=== PATIENT | female | born 1985 | race African-American/Black ===

== ENCOUNTER 2021-05-01 12:32 | Emergency (ER) | payer OTHER ==
[~2021-05-01] VITALS: Ht 152.4 cm; Wt 52.0 kg
[2021-05-01 15:35] LABS: BASOPHILS % 0.7 % (0.0-2.0); EOSINOPHILS % 2.8 % (0.0-5.0); HEMATOCRIT. 37.9 % (36.0-48.0); HEMOGLOBIN. 12.3 g/dL (12.0-16.0); LYMPHOCYTES % 30.6 % (20.0-50.0); MEAN CORPUSCULAR HEMOGLOBIN 28.1 pg (28.0-32.0); MEAN CORPUSCULAR VOLUME 86.5 fL (81.0-99.0); MONOCYTES % 7.9 % (2.0-8.0); PLATELET 260 x1000/uL (130-400); RED BLOOD CELL COUNT 4.37 mill/uL (4.2-5.4); RED CELL DISTRIBUTION WIDTH 15.3 % (11.6-14.6)
[2021-05-01 15:39] LABS: CHLORIDE 109 mEq/L (98-107)
[2021-05-01 15:41] LABS: CLARITY URINE TURBID (CLEAR); COLOR URINE RED (YELLOW); KETONES URINE NEGATIVE (NEGATIVE); LEUKOCYTE ESTERASE URINE 2+ (NEGATIVE); NITRITE URINE POSITIVE (NEGATIVE); OCCULT BLOOD URINE 2+ (NEGATIVE); PROTEIN URINE 2+ (NEGATIVE); SPECIFIC GRAVITY URINE 1.011 (1.005-1.030); UROBILINOGEN URINE 0.2 E.U./dL (0.2-1.0)
[2021-05-01 15:44] LABS: HCG SCREEN NEGATIVE
[2021-05-01] MEDS ORDERED: KETOROLAC 30MG/ML VIAL IV STA (15:56)
[2021-05-01] MEDS ORDERED: SODIUM CHLORIDE 0.9% 1,000 ML IV ONE (16:00)
[2021-05-01] MEDS ORDERED: DIPHENHYDRAMINE 50MG/ML VIAL IV ONE (16:00)
[2021-05-01] MEDS ORDERED: HALOPERIDOL LACTATE 5MG/ML VIAL IM ONE (16:00)
[2021-05-01 16:32] VITALS: BP 118/82
== END 2021-05-01 16:39 | disposition left against medical advice (07) ==
LOC: ER 12:32
DX: J02.9 Acute pharyngitis, unspecified (principal); M54.2 Cervicalgia; F12.90 Cannabis use, unspecified, uncomplicated; Z20.822 Contact with and (suspected) exposure to COVID-19; Z88.0 Allergy status to penicillin
CPT/HCPCS: 36415; 80053; 81003; 84703; 85025; 87426; 99283; J7030

== ENCOUNTER 2022-02-06 12:04 | Emergency (ER) | payer OTHER ==
[~2022-02-06] VITALS: Ht 152.4 cm; Wt 47.0 kg
[2022-02-06 12:33] VITALS: BP 118/78
[2022-02-06] MEDS ORDERED: MORPHINE SULFATE 4 MG/ML CPJ (NOT FOR IM USE) IV STA (14:39)
[2022-02-06] MEDS ORDERED: ONDANSETRON HCL 4MG/2ML INJ IV STA (14:39)
[2022-02-06] MEDS ORDERED: FAMOTIDINE 20MG/2ML VIAL IV STA (14:39)
[2022-02-06] MEDS ORDERED: METHYLPREDNISOLONE SOD SUCC 125 MG/2 ML VIAL IV ONE (14:45)
[2022-02-06] MEDS ORDERED: SODIUM CHLORIDE 0.9% 1,000 ML IV ONE (14:45)
[2022-02-06] MEDS ORDERED: DIPHENHYDRAMINE 50MG/ML VIAL IV ONE (14:45)
[2022-02-06 15:39] LABS: BASOPHILS % 0.8 % (0.0-2.0); EOSINOPHILS % 0.5 % (0.0-5.0); HEMATOCRIT. 29.8 % (36.0-48.0); HEMOGLOBIN. 9.1 g/dL (12.0-16.0); LYMPHOCYTES % 32.4 % (20.0-50.0); MEAN CORPUSCULAR HEMOGLOBIN 21.9 pg (28.0-32.0); MEAN CORPUSCULAR VOLUME 71.7 fL (81.0-99.0); MEAN PLATELET VOLUME 8.3 fl (7.4-10.4); MONOCYTES % 8.9 % (2.0-8.0); NEUTROPHILS % 57.4 % (40.0-76.0); PLATELET 335 x1000/uL (130-400); RED BLOOD CELL COUNT 4.16 mill/uL (4.2-5.4); RED CELL DISTRIBUTION WIDTH 19.2 % (11.6-14.6)
[2022-02-06 15:47] LABS: CHLORIDE 107 mEq/L (98-107)
[2022-02-06 15:50] LABS: PROTHROMBIN TIME 10.9 sec (9.6-11.0)
[2022-02-06 15:53] LABS: HCG SCREEN NEGATIVE
[2022-02-06] MEDS ORDERED: IBUP-2028 MT (16:53)
[2022-02-06] MEDS ORDERED: IOHEXOL-300 100 ML BOTTLE ONE (17:07)
== END 2022-02-06 18:40 | disposition left against medical advice (07) ==
LOC: ER 12:37 → EDBEDREQSVC 17:42 → EDBEDREQTM 18:10 → EDBEDREQ 18:10 → ER 18:40 → CANBEDREQ 21:27
DX: R13.10 Dysphagia, unspecified (principal); K92.2 Gastrointestinal hemorrhage, unspecified; Z88.0 Allergy status to penicillin; Z87.19 Personal history of other diseases of the digestive system; Z98.890 Other specified postprocedural states
CPT/HCPCS: 36415; 70491; 71045; 74176; 80053; 83690; 84484; 84703; 85025; 85610; 85730; 86850; 86900; 86901; 96361; 96374; 96375; 99285; J1200; J2270; J2405; J2930; J3490; J7030; Q9967

== ENCOUNTER 2023-07-31 23:17 | Emergency (ER) | payer MEDICAID, OTHER ==
[~2023-07-31] VITALS: Ht 152.4 cm; Wt 63.9 kg
[~2023-07-31 23:17] MED LIST: IBUP-2028 MT
[2023-07-31 23:45] VITALS: BP 126/69; PULSE 74; RESP 16; TEMP 98.2; O2SAT 100
== END 2023-08-01 00:15 | disposition left against medical advice (07) ==
LOC: ER 23:17
DX: R21 Rash and other nonspecific skin eruption (principal); Z53.21 Procedure and treatment not carried out due to patient leaving prior to being seen by health care provider

== ENCOUNTER 2024-07-07 20:04 | Emergency (ER) | payer MEDICAID, OTHER ==
[~2024-07-07] VITALS: Ht 162.6 cm; Wt 78.0 kg
[2024-07-07 20:10] VITALS: O2SAT 100
[2024-07-07] MEDS: CYCLOBENZAPRINE 10MG TABLET PO ONE (21:48)
[2024-07-07] MEDS: KETOROLAC 15MG/ML VIAL IM ONE (21:48)
[2024-07-07] MEDS ORDERED: NAPR-681 MT (23:59)
[2024-07-07] MEDS ORDERED: CYCL10TA21 MT (23:59)
[2024-07-08 00:13] VITALS: BP 139/89; PULSE 89; RESP 19; TEMP 36.7; O2SAT 100
== END 2024-07-08 00:18 | disposition home or self-care (01) ==
LOC: ER 20:04
DX: M54.2 Cervicalgia (principal); M54.9 Dorsalgia, unspecified; F12.90 Cannabis use, unspecified, uncomplicated; Z79.899 Other long term (current) drug therapy; Z98.890 Other specified postprocedural states; Z79.1 Long term (current) use of non-steroidal anti-inflammatories (NSAID); Z88.0 Allergy status to penicillin
CPT/HCPCS: 99285; 72125; 72128; 72131; 96372; J1885